=== PATIENT | male | born 1990 | race Caucasian/White ===

== ENCOUNTER 2025-04-25 13:44 | Emergency (ER) | payer MEDICAID, SELFPAY ==
[2025-04-25 13:57] VITALS: BP 119/73; PULSE 85; RESP 16; TEMP 36.7; O2SAT 98; BMI 20.7
== END 2025-04-25 19:19 | disposition left against medical advice (07) ==
PROVIDERS: Emergency Provider Family Medicine
DX: Z53.21 Procedure and treatment not carried out due to patient leaving prior to being seen by health care provider (principal)